=== PATIENT | male | born 1970 | race African-American/Black ===

== ENCOUNTER 2021-12-24 11:17 | Emergency (ER) | payer SELFPAY ==
--- OUTSIDE RECORDS SUMMARY | 2021-12-24 11:20 | XMS REPORT | Continuity of Care Document ---
:1970 Author Organization [facility] t Address [address] [place] [address] Care Team Providers Name Role Phone Braxton Ross Attending Clinician Unavailable LEONILA PIÑA Attending Clinician Unavailable RACHELLE BENAVIDEZ Attending Clinician Unavailable Blaze SCHULTZ Attending Clinician Unavailable GHADA Attending Clinician Unavailable Yamil Joy Attending Clinician Unavailable Physician, Primary or Family Admitting Clinician Unavailabl e Payers Payer Name Policy Type Policy Number Effective Date Expiration Date S ource Problems This patient has no known problems. Allergies, Adverse Reactions, Alerts Allergy Allergy Status Severity Reaction(s) Onset Inactive Treating Comm ents Source Name Type Date Date Clinician No Known DA Active U 2020-1 [facility] [place] No Known DA Active U 1 [facility] [place] No Known DA Active U 2020-0 [facility] 01[facility] [place] No Known DA Active U 2020-0 [facility] 01[facility] [place] NO KNOWN Allergy Active [facility] Medications This patient has no known medications. Vital Signs Vital Name Observation Time Observation Value Comments Source WEIGHT 2021-10-26 12:05:00 102.967 kg HEIGHT 2021-10-26 12:05:00 167.6 cm WEIGHT 2021-10-26 12:05:00 102.967 kg HEIGHT 2021-10-26 12:05:00 167.6 cm HEIGHT 2021-04-10 04:47:00 167.6 cm WEIGHT 2021-04-10 04:47:00 108.863 kg HEIGHT 2021-04-10 04:47:00 167.6 cm WEIGHT 2021-04-10 04:47:00 108.863 kg Procedures This patient has no known procedures. Encounters Start End Encounter Admission Attending Care Care Encounter Source Date/Time Date/Time Type Type Clinicians Facility Department ID 2020-11-25 Inpatient [facility] EO3 [id number] 05:01:00 [id number] [facility] are [place] 2020-10-12 Inpatient [facility] EO3 [id number] [facility] 17:46:00 [id number] [facility] are [place] 2020-04-29 Inpatient [facility] EO3 [id number] 20:42:00 [id number] [facility] are [place] 2020-04-15 Inpatient [facility] EO3 [id number] 22:41:00 [id number] [facility] are [place] 2020-02-05 Inpatient [facility] EO3 [id number] 18:42:00 [id number] [facility] are [place] 2020-02-01 Inpatient [facility] EO3 [id number] [facility] 12:23:00 [id number] [facility] are [place] 2021-12-01 2021-12-01 Emergency EM Ross, Donnie [facility] EO3 [id number] [facility] 13:11:00 13:45:00 [id number] [facility] are [place] 2021-12-01 2021-12-01 Emergency EM Ross, Donnie [facility] [id number] [facility] 13:11:00 13:45:00 24 [facility] are [place] 2021-10-26 2021-10-26 Emergency ER PERMENTER, [facility] Emergency [id number] [facility] 12:06:00 14:44:00 MAIN 2021-04-10 2021-04-10 Emergency ER [facility] Emergency [id number] [facility] 04:43:00 04:43:00 2021-03-18 2021-03-18 Outpatient [facility] [id number] [place] 00:00:00 00:00:00 Health 2021-01-19 2021-01-19 Outpatient MARION, [facility] [id number] [place] 07:11:04 07:11:04 WILLARD Simon 2020-12-11 2020-12-15 Outpatient [facility] [id number] [place] 17:42:00 17:50:00 [facility] 2020-10-12 2020-10-12 [facility] [id number] 17:46:00 18:42:00 Denis [id number] Kis[facility] are [place] Results Test Description Test Time Test Comments Results Result Comments Source RAPID DRUG SCREEN, URINE 2021-10-26 13:24:10 Test Item Value Reference Range Interpretation Comme nts BARBITURATE URINE (BEAKER) (test code = 725) Negative Negative BENZODIAZEPINE SCREEN URINE (BEAKER) (test code = 726) Negative Negative COCAINE (METAB.) SCREEN (BEAKER) (test code = 1164) Positive Ne gative A OPIATE SCREEN URINE (BEAKER) (test code = 734) Negative Negativ e CANNABINOID SCREEN URINE (BEAKER) (test code = 727) Positive Ne gative A AMPH/METHAMPH SCREEN (BEAKER) (test code = 1438) Negative Negat cookie PHENCYCLIDINE SCREEN URINE (BEAKER) (test code = 608) Negative Negative PH UA (BEAKER) (test code = 467) 5.0 5.0-8.0 DRUG CUTOFF CONC.Cocaine 300 ng/mLCannabinoid 50 ng/mLBenzodiazepine 200 ng/mLBarbiturate 200 ng/mLPhencyclidine 25 ng/mLOpiate 300 ng/mLAmphetamine/ 1000 ng/mL MethamphetamineThis assay provides an unconfirmed qualitative test result for the clinical management of patients in emergency situations. Chain of custody not maintained. Some hvap-lgi-sgtnqef medications, as well as adulterants, may cause inaccurate results. Clinical correlation should be applied. A more comprehensive drug screen or confirmation of a detected drug may be performed upon request.Electromedical Equipment Repairer ID - NOLICOMPREHENSIVE METABOLIC [id number] 13:20:23 Test Item Value Reference Range Interpretation Comments TOTAL PROTEIN 6.7 gm/dL 6.0-8.5 (BEAKER) (test code = 770) ALBUMIN (BEAKER) 3.7 g/dL 3.5-5.0 (test code = 1145) ALKALINE PHOSPHATASE 77 U/L 30-115 (BEAKER) (test code = 346) BILIRUBIN TOTAL 0.2 mg/dL 0.1-1.2 (BEAKER) (test code = 377) SODIUM (BEAKER) (test 141 meq/L 135-148 code = 381) POTASSIUM (BEAKER) 4.6 meq/L 3.6-5.5 (test code = 379) CHLORIDE (BEAKER) 113 meq/L 98-106 H (test code = 382) CO2 (BEAKER) (test 19 meq/L 20-29 L code = 355) BLOOD UREA NITROGEN 16 mg/dL 10-26 (BEAKER) (test code = 354) CREATININE (BEAKER) 1.31 mg/dL 0.50-1.20 H (test code = 358) GLUCOSE RANDOM 101 mg/dL 70-110 (BEAKER) (test code = 652) CALCIUM (BEAKER) 9.2 mg/dL 8.5-10.5 (test code = 697) AST (SGOT) (BEAKER) 13 U/L 5-40 (test code = 353) ALT (SGPT) (BEAKER) 21 U/L 5-50 (test code = 347) EGFR (BEAKER) (test 70 mL/min/1.73 ESTIMA HARRIS GFR IS code = 1092) sq m NOT ACCURATE CREATININE CLEARANCE IN PREDICTING GLOMERULAR FILTRATION RATE . ESTIMATED GFR I S NOT APPLICABLE FOR DIALYSIS PATIEN TS. Electromedical Equipment Repairer ID - [id number] 13:19:16 Test Item Value Reference Range Interpretation Comments LIPASE (BEAKER) (test code = 749) 37 U/L 6-51 Electromedical Equipment Repairer ID - NOLIURINALYSIS W/ REFLEX URINE [id number] 13:14:07 Test Item Value Reference Range Interpretation Comments COLOR (BEAKER) (test code = Yellow 470) CLARITY (BEAKER) (test code = Clear 469) SPECIFIC GRAVITY UA (BEAKER) 1.025 1.001-1.035 (test code = 468) PH UA (BEAKER) (test code = 6.0 5.0-8.0 467) PROTEIN UA (BEAKER) (test code Negative Negative = 464) GLUCOSE UA (BEAKER) (test code Negative Negative = 365) KETONES UA (BEAKER) (test code Negative Negative = 371) BILIRUBIN UA (BEAKER) (test Negative Negative code = 462) BLOOD UA (BEAKER) (test code = Negative Negative 461) NITRITE UA (BEAKER) (test code Negative Negative = 465) LEUKOCYTE ESTERASE UA (BEAKER) Trace Negative A (test code = 466) UROBILINOGEN UA (BEAKER) (test 0.2 mg/dL 0.2-1.0 code = 463) BACTERIA (BEAKER) (test code = Rare 517) MUCUS (BEAKER) (test code = Rare 1574) RBC UA-MANUAL (BEAKER) (test None Seen /HPF code = 1659) WBC UA-MANUAL (BEAKER) (test 5-10 /HPF code = 1661) SQUAMOUS EPITHELIAL MANUAL <5 /HPF (BEAKER) (test code = 1663) SOURCE(BEAKER) (test code = 2795) [id number] 13:08:34 Test Item Value Reference Range Interpretation Comments PROTIME (BEAKER) (test 10.4 seconds 9.8-12.0 Final Information code = 759) (Auto Output) INR (BEAKER) (test 0.95 See_Comment Final Inf ormation code = 370) (Auto Output) [Automated mess age] The system [employer] generated this result transmit harris reference range : <=5.90. The reference range was not used to interpret this result as normal/abnormal . PARTIAL THROMBOPLASTIN 25.6 seconds 25.8-34.5 L Final Information TIME (BEAKER) (test (Auto Ou tput) code = 760) RECOMMENDED COUMADIN/WARFARIN INR THERAPY RANGESSTANDARD DOSE: 2.0 - 3.0 Includes: PROPHYLAXIS forvenous thrombosis, systemic embolization; TREATMENT for venous thrombosis and/or pulmonary embolus.HIGH RISK: Target INR is 2.5-3.5 for patients with mechanical heart valves.CBC W/PLT COUNT & AUTO DIFFERENTIAL 2021-10-26 13:05:16 Test Item Value Reference Range Interpretation Comments WHITE BLOOD CELL COUNT (BEAKER) 4.6 K/ L 4.0-10.0 (test code = 775) RED BLOOD CELL COUNT (BEAKER) 4.82 M/ L 4.20-5.80 (test code = 761) HEMOGLOBIN (BEAKER) (test code = 13.3 GM/DL 13.0-16.8 410) HEMATOCRIT (BEAKER) (test code = 42.4 % 36.0-50.0 411) MEAN CORPUSCULAR VOLUME (BEAKER) 88.0 fL 82.0-99.0 (test code = 753) MEAN CORPUSCULAR HEMOGLOBIN 27.6 pg 27.0-33.0 (BEAKER) (test code = 751) MEAN CORPUSCULAR HEMOGLOBIN CONC 31.4 GM/DL 32.0-36.0 L (BEAKER) (test code = 752) RED CELL DISTRIBUTION WIDTH 13.9 % 12.0-15.0 (BEAKER) (test code = 412) PLATELET COUNT (BEAKER) (test 249 K/CU MM 150-430 code = 756) MEAN PLATELET VOLUME (BEAKER) 9.9 fL 6.0-11.5 (test code = 754) NUCLEATED RED BLOOD CELLS 0 /100 WBC 0-0 (BEAKER) (test code = 413) NEUTROPHILS RELATIVE PERCENT 50 % (BEAKER) (test code = 429) LYMPHOCYTES RELATIVE PERCENT 33 % (BEAKER) (test code = 430) MONOCYTES RELATIVE PERCENT 16 % (BEAKER) (test code = 431) EOSINOPHILS RELATIVE PERCENT 1 % (BEAKER) (test code = 432) BASOPHILS RELATIVE PERCENT 0 % (BEAKER) (test code = 437) NEUTROPHILS ABSOLUTE COUNT 2.27 K/ L 1.80-8.00 (BEAKER) (test code = 670) LYMPHOCYTES ABSOLUTE COUNT 1.50 K/ L 1.48-4.50 (BEAKER) (test code = 414) MONOCYTES ABSOLUTE COUNT (BEAKER) 0.71 K/ L 0.00-1.30 (test code = 415) EOSINOPHILS ABSOLUTE COUNT 0.06 K/ L 0.00-0.50 (BEAKER) (test code = 416) BASOPHILS ABSOLUTE COUNT (BEAKER) 0.01 K/ L 0.00-0.20 (test code = 417) IMMATURE GRANULOCYTES-RELATIVE 0 % 0-0 PERCENT (BEAKER) (test code = 2801) LACTIC ACID, [id number] 12:58:33 Test Item Value Reference Range Interpretation Comments LACTATE BLOOD VENOUS (2) (BEAKER) 0.90 mmol/L 0.70-2.50 (test code = 6713) RAD, SPINE, LUMBAR, COMPLETE (MIN 4 VIEWS)2021-10-26 12:46:00Reason for exam:- >BACK PAINpt complains of right low back pain that has been going on for the past 2 days, pt also states hes had 2 bowel movements with dark black stool Should this be performed at the bedside?->[facility] 1970 Sex: MFINAL REPORT Lumbar spine series History provided: Back pain Five lum bar vertebrae in normal alignment with preservation of vertebral body heights and disc spaces. Mild hypertrophic spurring at multiple levels. Signed: Sheng Dotson MDReport Verified Date/Time: 10/26/2021 12:46:17 Reading Location: [facility] Diagnostic Imaging Reading Room - [facility] 1.310.12 RAD, SPINE, THORACIC, 2 [id number] 12:45:00Reason for exam:->BACK PAINpt complains of right low back pain that has been going on for the past 2 days, pt also states hes had 2 bowel movements with dark black stool Should this be performed at the bedside?->Yes [facility] 1970 Sex: MFINAL REPORT Thoracic spine series History provided: Back pain No fra cture or subluxation. No lytic or blastic changes. Mild hypertrophic spurring throughout the lower thoracic region. Signed: Sheng Dotson Verified Date/Time: 10/26/2021 12:45:34 Reading Location: [place] [address] [phone] RAD, CHEST, 1 VIEW, NON [id number] 12:44:00Reason for exam:->BACK PAINpt complains of right low back pain that has been going on for the past 2 days, pt also states hes had 2 bowel movements with dark black stool Should this be performed at the bedside?->Yes [facility] 1970 Sex: MFINAL REPORT Chest AP portable COMPARISON STUDY: 04/10/2021 History pr ovided: Back pain Radiographically normal-appearing heart and lungs. Signed: Sheng Dotson Verified Date/Time: 10/26/2021 12:44:47 Reading Location: [facility] Imaging [place] Room [place] [address] 1310.87 TROPONIN [id number] 08:19:00 Test Item Value Reference Range Interpretation Comments TROPONIN I (BEAKER) (test code = 0.02 ng/mL 0.00-0.03 397) Troponin I (TnI) levels must be interpreted in the context of the presenting symptoms and the clinical findings. Elevated TnI levels indicate myocardial damage, but are not specific for ischemic heart disease. Elevated TnI levels are seen in patients with other cardiac conditions (including myocarditis and congestive heart failure), and slight TnI elevations occur in patients with other conditions, including sepsis, renal failure, acidosis, acute neurological disease, and persistent tachyarrhythmia.Electromedical Equipment Repairer ID - BRUCEB-TYPE NATRIURETIC FACTOR (BNP)2021-04-10 05:28:00 Test Item Value Reference Range Interpretation Comments B-TYPE NATRIURETIC PEPTIDE (BEAKER) 16 pg/mL 0-100 (test code = 700) Electromedical Equipment Repairer ID - NLYLETROPONIN [id number] 05:27:00 Test Item Value Reference Range Interpretation Comments TROPONIN I (BEAKER) (test code = 0.03 ng/mL 0.00-0.03 397) Troponin I (TnI) levels must be interpreted in the context of the presenting symptoms and the clinical findings. Elevated TnI levels indicate myocardial damage, but are not specific for ischemic heart disease. Elevated TnI levels are seen in patients with other cardiac conditions (including myocarditis and congestive heart failure), and slight TnI elevations occur in patients with other conditions, including sepsis, renal failure, acidosis, acute neurological disease, and persistent tachyarrhythmia.Electromedical Equipment Repairer ID - NLYLECOMPREHENSIVE METABOLIC [id number] 05:24:00 Test Item Value Reference Range Interpretation Comments TOTAL PROTEIN 7.1 gm/dL 6.0-8.5 Specimen sligh tly (BEAKER) (test code hemolyze d = 770) ALBUMIN (BEAKER) 4.2 g/dL 3.5-5.0 Specimen sl ightly (test code = 1145) hemolyzed ALKALINE PHOSPHATASE 52 U/L 30-115 (BEAKER) (test code = 346) BILIRUBIN TOTAL 0.4 mg/dL 0.1-1.2 Specimen sli ghtly (BEAKER) (test code hemolyze d = 377) SODIUM (BEAKER) 139 meq/L 135-148 (test code = 381) POTASSIUM (BEAKER) 3.8 meq/L 3.6-5.5 Specimen slightly (test code = 379) hemolyzed CHLORIDE (BEAKER) 105 meq/L 98-106 (test code = 382) CO2 (BEAKER) (test 20 meq/L 20-29 code = 355) BLOOD UREA NITROGEN 12 mg/dL 10-26 (BEAKER) (test code = 354) CREATININE (BEAKER) 1.62 mg/dL 0.50-1.20 H Specimen slightly (test code = 358) hemolyzed GLUCOSE RANDOM 116 mg/dL 70-110 H (BEAKER) (test code = 652) CALCIUM (BEAKER) 9.2 mg/dL 8.5-10.5 (test code = 697) AST (SGOT) (BEAKER) 21 U/L 5-40 Specimen slightly (test code = 353) hemolyzed ALT (SGPT) (BEAKER) 27 U/L 5-50 Specimen slightly (test code = 347) hemolyzed EGFR (BEAKER) (test 55 mL/min/1.73 INSUFF ICIENT code = 1092) sq m CLINICAL DATA T O CALCULATE ESTIM ATED GFR. Electromedical Equipment Repairer ID - NLYLERAD, CHEST, 1 VIEW, NON [id number] 05:24:00Reason for exam:->CHEST PAINShould this be performed at the bedside?->Yes [facility] 1970 Sex: MFINAL REPORT Chest one view. Clinical history: CHEST PAIN Comparison: None. Technique: A single frontal view of the chest was obtained. Findings: The cardiomediastinalcontours are normal. There is no focal pulmonary consolidation, pleural effusion or pneumothorax. There is no pulmonary edema. The osseous structures are unremarkable. Impression: No focal pulmonary consolidation or pneumothorax. Signed: Krys Garcia MDReport Verified Date/Time: 04/10/2021 05:24:41 CBC W/PLT COUNT & AUTO [id number] 05:04:00 Test Item Value Reference Range Interpretation Comments WHITE BLOOD CELL COUNT (BEAKER) 7.0 K/ L 4.0-10.0 (test code = 775) RED BLOOD CELL COUNT (BEAKER) 4.84 M/ L 4.20-5.80 (test code = 761) HEMOGLOBIN (BEAKER) (test code = 13.6 GM/DL 13.0-16.8 410) HEMATOCRIT (BEAKER) (test code = 42.8 % 36.0-50.0 411) MEAN CORPUSCULAR VOLUME (BEAKER) 88.4 fL 82.0-99.0 (test code = 753) MEAN CORPUSCULAR HEMOGLOBIN 28.1 pg 27.0-33.0 (BEAKER) (test code = 751) MEAN CORPUSCULAR HEMOGLOBIN CONC 31.8 GM/DL 32.0-36.0 L (BEAKER) (test code = 752) RED CELL DISTRIBUTION WIDTH 14.2 % 12.0-15.0 (BEAKER) (test code = 412) PLATELET COUNT (BEAKER) (test 272 K/CU MM 150-430 code = 756) MEAN PLATELET VOLUME (BEAKER) 10.3 fL 6.0-11.5 (test code = 754) NUCLEATED RED BLOOD CELLS 0 /100 WBC 0-0 (BEAKER) (test code = 413) NEUTROPHILS RELATIVE PERCENT 49 % (BEAKER) (test code = 429) LYMPHOCYTES RELATIVE PERCENT 35 % (BEAKER) (test code = 430) MONOCYTES RELATIVE PERCENT 15 % (BEAKER) (test code = 431) EOSINOPHILS RELATIVE PERCENT 1 % (BEAKER) (test code = 432) BASOPHILS RELATIVE PERCENT 0 % (BEAKER) (test code = 437) NEUTROPHILS ABSOLUTE COUNT 3.39 K/ L 1.80-8.00 (BEAKER) (test code = 670) LYMPHOCYTES ABSOLUTE COUNT 2.43 K/ L 1.48-4.50 (BEAKER) (test code = 414) MONOCYTES ABSOLUTE COUNT (BEAKER) 1.01 K/ L 0.00-1.30 (test code = 415) EOSINOPHILS ABSOLUTE COUNT 0.08 K/ L 0.00-0.50 (BEAKER) (test code = 416) BASOPHILS ABSOLUTE COUNT (BEAKER) 0.02 K/ L 0.00-0.20 (test code = 417) IMMATURE GRANULOCYTES-RELATIVE 0 % 0-0 PERCENT (BEAKER) (test code = 2801) [id number] 17:42:00 Test Item Value Reference Range Interpretation Comments TROPONIN-I 0.01 ng/mL 0.00-0.03 N Correlation wit h serial (test code = results, other cardiac TROPI) markers andclin ical findings is necessary to determine the clinicalsignifi cance of this result. Results using different metho dologies should not be c omparedto one another as charley titative results may vick y by method. [id number] 14:21:00 Test Item Value Reference Range Interpretation Comments TROPONIN-I 0.01 ng/mL 0.00-0.03 N Correlation wit h serial (test code = results, other cardiac TROPI) markers andclin ical findings is necessary to determine the clinicalsignifi cance of this result. Results using different metho dologies should not be c omparedto one another as charley titative results may vick y by method. [id number] 11:41:00 Test Item Value Reference Range Interpretation Comments TROPONIN-I 0.01 ng/mL 0.00-0.03 N Correlation wit h serial (test code = results, other cardiac TROPI) markers andclin ical findings is necessary to determine the clinicalsignifi cance of this result. Results using different metho dologies should not be c omparedto one another as charley titative results may vick y by method. COVID 19 Asymptomatic IH [id number] 05:57:00 Test Item Value Reference Range Interpretation Comments COVID 19 Asymptomatic NEGATIVE Negative NEGAT COOKIE RESULTS IH AG (test code = SHOULD BE TREATED COVNONPUIAG) PRESUMPTIVE ANDCONFIRMED WT IH A MOLECULAR ASSAY , IF NECESSARY FOR PATIENTMANAGEME NT. NEGATIVE RESULT S DO NOT RULE OUT CO VID-19 ANDSHOULD NOT B E USED THE SOLE BAS IS FOR TREATMENT ORPAT IENT MANAGEMENT DECI SIONS, INCLUDING INFEC TION CONTROLDECISION S. NEGATIVE RESULT S SHOULD BE CONSI DERED IN THECONTEXT O F A PATIENT'S RECEN T EXPOSURES, HIST ORY AND THEPRESENCE OF CLINICAL SIGNS AND SYMPTOMS CONSIS TENT WITHCOVID-19. - XR CHEST 1 [id number] 05:28:00 [facility] 1970 Sex: MPatient Name: KVNG INIGUEZ Unit No: [id number] EXAMS: CPT: [id number] XR CHEST 1 V 52457 CHEST 1 VIEW CLINICAL HISTORY: Chest pain COMPARISON: 04/29/2020. A single frontal view of the chest is submitted. FINDINGS: The cardiac silhouette is normal in size. Vascularity appears normal. The lungs are clear. No pleural effusion or pneumothorax is seen. No osseous abnormalities are seen. IMPRESSION: Negative chest radiograph. Electronically Signedby Henrik Kelley MD on 11/25/2020 at 0528 Reported and signed by: Henrik Kelley MD CC: RASHIDA ROSS MD Technologist: ALDO WINSTON Trscr Dt/Tm: 11/25/2020 (05) by:[email or web address] Orig Print D/T: S: 11/25/2020 (05) BATCH NO: N/A Name: K[facility]NG [facility] DeptPhys: [email or web address] - [place] [id number] [facility] : 1970 Age: 50 Sex: [place] [address] Loc: [facility] Exam Date: 11/25/2020 Status: REG ER PH: [phone] FAX: PAGE 1 Signed ReportANGELLA Restrepo [id number] 05:26:00 Test Item Value Reference Range Interpretation Comments TROPONIN I RAPID 0.00 ng/mL 0.00-0.08 N ISTAT (test code = TROPONIN I TROPIRAP) CRITERIA0.00-0. 08 ng/mL - Negative>0.08 n g/mL - Positive The us e of serial sampling and te sting protocol is are commended practice.An yoandy vated troponin level alone is often not suffi cient fordiagnosis of myocardial infarction. Tro ponin results obtaine d by different assay s may vary.Evaluation of the extent of myoca rdial damage based on increase of troponin would be valid only if similar methodology is used. CHEMISTRY 8 [id number] 05:19:00 Test Item Value Reference Range Interpretation Comments SODIUM POC (test code = NAP) mmol/L 138-146 N POTASSIUM POC (test code = KP) mmol/L 3.5-4.9 N CHLORIDE POC (test code = CLP) mmol/L 98-109 CO2 POC (test code = CO2P) mmol/L 24-29 IONIZED CALCIUM POC (test code = mmol/L 1.10-1.32 N CAIP) GLUCOSE POC (test code = GLUP) MG/DL 70-105 H BUN POC (test code = BUNP) mg/dL 8-26 N CREATININE POC (test code = CREATP) mg/dL 0.6-1.3 H GLOMERULAR FILTRATION RATE POC (test 65 >60 code = GFRP) CHEMISTRY 8 [id number] 05:19:00 Test Item Value Reference Range Interpretation Comments SODIUM POC (test code = NAP) 141 mmol/L 138-146 N POTASSIUM POC (test code = KP) 3.8 mmol/L 3.5-4.9 N CHLORIDE POC (test code = CLP) 109 mmol/L 98-109 N CO2 POC (test code = CO2P) 24 mmol/L 24-29 N IONIZED CALCIUM POC (test code = 1.22 mmol/L 1.10-1.32 N CAIP) GLUCOSE POC (test code = GLUP) 134 MG/DL 70-105 H BUN POC (test code = BUNP) 18 mg/dL 8-26 N CREATININE POC (test code = 1.4 mg/dL 0.6-1.3 H CREATP) GLOMERULAR FILTRATION RATE POC 65 >60 (test code = GFRP) CBC W/AUTO [id number] 05:18:00 Test Item Value Reference Range Interpretation Comments WHITE BLOOD CELL 5.8 x10 3/u 4.8-10.8 N (test code = WBC) RED BLOOD CELL (test 4.59 x10 6/uL 4.70-6.10 L code = RBC) HEMOGLOBIN (test code 12.7 g/dL 13.0-17.0 L = HGB) HEMATOCRIT (test code 39.7 % 42.0-52.0 L = HCT) MEAN CELL VOLUME 87 fL 80-99 N (test code = MCV) MEAN CELL HGB (test 27.7 pg 27.0-31.0 N code = MCH) MEAN CELL HGB 32.0 g/dL 33.0-37.0 L CONCENTRATION (test code = MCHC) RED CELL DISTRIBUTION 13.2 % 11.5-14.5 N WIDTH (test code = RDW) PLATELET COUNT (test 213 x10 3/uL 130-400 N code = PLT) MEAN PLATELET VOLUME 10.3 fL 9.4-12.4 N (test code = MPV) NEUTROPHIL % (test 44.7 % 37.0-80.0 N code = NT%) LYMPHOCYTE % (test 37.6 % 10.0-50.0 N code = LY%) MIXED % (test code = 17.7 % 0.0-11.0 H The Mix ed Cell MX%) percent and Mix ed Cell absolute numberinclude monocytes, eosinophils and basophils. NEUTROPHIL # (test 2.6 x10 3/uL 2.0-6.9 N code = NT#) LYMPHOCYTE # (test 2.2 x10 3/uL 0.9-4.1 N code = LY#) MIXED # (test code = 1.0 10e3/mm3 0.2-1.1 N MX#) - XR CHEST 2 [id number] 21:28:00Patient Name: KVNG INIGUEZ Unit No: [id number] EXAMS: CPT: [id number] XR CHEST 2 V 73909 CHEST 2 VIEWS: CLINICAL HISTORY: Dizziness TECHNIQUE:PA and lateral views of the chest. COMPARISON: None. FINDINGS: The cardiac silhouette is normal in size. Vascularity appears normal. The lungs are well expanded and clear. There are no pleural effusions. No pneumothorax is seen. No osseous abnormalities are seen. IMPRESSION: Negative chest radiograph. at 2128 Reported and signed by: Henrik Kelley MD CC: Hector Pelaez DOTechnologist: ALDO WINSTON Trscr Dt/Tm: 04/29/2020 (2127) by:[email or web address] Orig Print D/T: S: 04/29/2020 (2131) BATCH NO: N/A Name: KVNG INIGUEZ [facility] Phys: [place] [id number] [facility] DrDOB: 1970 Age: 50 Sex: [place] [address] [facility] Date: 04/29/2020 Status: REG ER PH: [phone] FAX: PAGE 1 Signed Report- CT HEAD/BRAIN W/O [id number] 21:24:00Patient Name: KVNG INIGUEZ Unit No: [id number] EXAMS: CPT: [id number] CT HEAD/BRAIN W/O CONT 34344 CT HEAD WITHOUT CONTRAST: CLINICAL HISTORY: Dizziness COMPARISON: None. TECHNIQUE: Axial CT of the brain without IV contrast was performed. Coronal and sagittal reformatted images are submitted. FINDINGS: The ventricles are normal in size and shape. No evidence of an intra-axial or extra-axial mass is seen, and no shift of the midline structures is present. There is no evidence of acute cerebral infarction. No evidence of subarachnoid or parenchymal hemorrhage or extra-axial fluid collection is seen. The visualized paranasal sinuses are clear. IMPRESSION: Negative CT of the brain. DLP: 409.99 mGy-cm CT dose optimization is achieved for this examination by the use of a CT protocol in accordance with ACR practice standards and adherence to sanipractic physician's recommendations with automated exposure control. at 2124 Reported and signed by: Henrik Kelley MD CC:Hector Pelaez DO Technologist: ALDO WINSTON CTDI: 24.44 DLP: 409.99 Trscr Dt/Tm: 04/29/2020 (2123) by:[email or web address] Orig Print D/T: S: 04/29/2020 (2126) BATCH NO: N/A Name: [facility] Emergency Dept Phys: [place] [id number] [place] : 1970 Age: 50 Sex: [place] [address] Loc: [facility] Exam Date: 04/29/2020 Status: PRE ER PH: [phone] FAX: PAGE 1 Signed Report COMPREHENSIVE METABOLIC [id number] 21:18:00 Test Item Value Reference Range Interpretation Comments SODIUM POC (test code = NAP) mmol/L 138-146 POTASSIUM POC (test code = KP) mmol/L 3.5-4.9 CHLORIDE POC (test code = CLP) mmol/L 98-109 N CO2 POC (test code = CO2P) mmol/L 24-29 GLUCOSE POC (test code = GLUP) MG/DL 70-105 BUN POC (test code = BUNP) mg/dL 8-26 N CREATININE POC (test code = CREATP) mg/dL 0.6-1.3 N GLOMERULAR FILTRATION RATE POC (test 78 56-130 N code = GFRP) TOTAL PROTEIN (test code = PROT) g/dL 6.4-8.1 ALBUMIN (test code = ALB) g/dL 3.3-5.5 N CALCIUM (test code = CA) mg/dL 8.8-10.5 N BILIRUBIN TOTAL (test code = BILT) mg/dL 0.2-1.6 SGOT/AST (test code = AST) IU/L 11-38 N SGPT/ALT (test code = ALT) IU/L 10-47 N ALKALINE PHOSPHATASE (test code = IU/L 42-141 N ALKP) COMPREHENSIVE METABOLIC [id number] 21:18:00 Test Item Value Reference Range Interpretation Comments SODIUM POC (test code = NAP) 143 mmol/L 138-146 N POTASSIUM POC (test code = KP) 3.9 mmol/L 3.5-4.9 N CHLORIDE POC (test code = CLP) 108 mmol/L 98-109 N CO2 POC (test code = CO2P) 24 mmol/L 24-29 N GLUCOSE POC (test code = GLUP) 114 MG/DL 70-105 H BUN POC (test code = BUNP) 13 mg/dL 8-26 N CREATININE POC (test code = 1.2 mg/dL 0.6-1.3 N CREATP) GLOMERULAR FILTRATION RATE POC 78 56-130 N (test code = GFRP) TOTAL PROTEIN (test code = PROT) 6.8 g/dL 6.4-8.1 N ALBUMIN (test code = ALB) 3.5 g/dL 3.3-5.5 N CALCIUM (test code = CA) 9.1 mg/dL 8.8-10.5 N BILIRUBIN TOTAL (test code = BILT) 0.5 mg/dL 0.2-1.6 N SGOT/AST (test code = AST) 23 IU/L 11-38 N SGPT/ALT (test code = ALT) 27 IU/L 10-47 N ALKALINE PHOSPHATASE (test code = 81 IU/L 42-141 N ALKP) TROPONIN I [id number] 21:17:00 Test Item Value Reference Range Interpretation Comments TROPONIN I RAPID 0.00 ng/mL 0.00-0.08 N ISTAT (test code = TROPONIN I TROPIRAP) CRITERIA0.00-0. 08 ng/mL - Negative>0.08 n g/mL - Positive The us e of serial sampling and te sting protocol is are commended practice.An yoandy vated troponin level alone is often not suffi cient fordiagnosis of myocardial infarction. Tro silvia results obtaine d by different assay s may vary.Evaluation of the extent of myoca rdial damage based on increase of troponin would be valid only if similar methodology is used. CBC W/AUTO [id number] 21:08:00 Test Item Value Reference Range Interpretation Comments WHITE BLOOD CELL 7.4 x10 3/u 4.8-10.8 N (test code = WBC) RED BLOOD CELL (test 4.86 x10 6/uL 4.70-6.10 N code = RBC) HEMOGLOBIN (test code 13.2 g/dL 13.0-17.0 N = HGB) HEMATOCRIT (test code 41.9 % 42.0-52.0 L = HCT) MEAN CELL VOLUME 86 fL 80-99 N (test code = MCV) MEAN CELL HGB (test 27.2 pg 27.0-31.0 N code = MCH) MEAN CELL HGB 31.5 g/dL 33.0-37.0 L CONCENTRATION (test code = MCHC) RED CELL DISTRIBUTION 14.8 % 11.5-14.5 H WIDTH (test code = RDW) PLATELET COUNT (test 333 x10 3/uL 130-400 N code = PLT) MEAN PLATELET VOLUME 9.0 fL 9.4-12.4 L (test code = MPV) NEUTROPHIL % (test 58.3 % 37.0-80.0 N code = NT%) LYMPHOCYTE % (test 29.6 % 10.0-50.0 N code = LY%) MIXED % (test code = 12.1 % 0.0-11.0 H The Mix ed Cell MX%) percent and Mix ed Cell absolute numberinclude monocytes, eosinophils and basophils. NEUTROPHIL # (test 4.3 x10 3/uL 2.0-6.9 N code = NT#) LYMPHOCYTE # (test 2.2 x10 3/uL 0.9-4.1 N code = LY#) MIXED # (test code = 0.9 10e3/mm3 0.2-1.1 N MX#)
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
--- NOTE | 2021-12-24 12:52 | RAD REPORT ---
EXAM DESCRIPTION: CT - Stone Protocol - 12/24/2021 11:52 am CLINICAL HISTORY: Abdominal pain. COMPARISON: None. TECHNIQUE: Computed axial tomography of the abdomen pelvis was obtained without oral or IV contrast. Lack of IV and oral contrast limits evaluation of solid organs, bowel, and vessels. Coronal reformat tariq images were obtained and reviewed. All CT scans are performed using dose optimization technique as appropriate and may include automated exposure control or mA/KV adjustment according to patient size. FINDINGS: A renal calculus is not seen. An ureteral calculus is not noted. A bladder calculus is not present. The liver, spleen, pancreas and adrenals appear grossly normal There is no evidence of diverticulitis. The appendix appears normal Small bilateral inguinal hernias. Moderate amount of stool is present within the colon. IMPRESSION: Negative for a genitourinary calculus
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
[2021-12-24] MEDS ORDERED: MAGNES/ALUMIN/SIMET 30ML UCUP ONE (13:16)
[2021-12-24] MEDS ORDERED: LIDOCAINE VISCOUS 2% SOLN 15 ML UDC ONE (13:16)
[2021-12-24 13:27] LABS: Urine Blood Negative (Negative); Urine Glucose Negative (Negative); Urine Protein Negative (Negative); Urine Specific Gravity >=1.030 (1.005-1.030)
[2021-12-24 13:39] VITALS: TEMP 98.4; O2SAT 100
[2021-12-24 13:40] VITALS: BP 121/78
== END 2021-12-24 13:32 | disposition home or self-care (01) ==
LOC: ER 11:17
DX: M54.50 Low back pain, unspecified (principal); F20.9 Schizophrenia, unspecified; F17.210 Nicotine dependence, cigarettes, uncomplicated
CPT/HCPCS: 72131; 74176; 76377; 81003; 99284